=== PATIENT | male | born 1965 | race Caucasian/White ===

== ENCOUNTER 2020-05-12 15:08 | Outpatient (CLI) | payer MEDICARE, SELFPAY | END 2020-05-12 15:09 | disposition home or self-care (01) | LOC: CHSLAB 15:16 | PROVIDERS: PCP Family Medicine; Visit Provider Specialist | DX: L01.00 Impetigo, unspecified (principal) | CPT/HCPCS: 87070; 87077; 87186; 87205 ==

== ENCOUNTER 2020-05-29 10:19 | Outpatient (CLI) | payer MEDICARE, SELFPAY ==
--- NOTE | ~2020-05-29 | US_ITS ---
EXAMINATION: US scrotum doppler EXAM DATE: 05/29/2020 10:52 INDICATION: Left-sided scrotal pain for 2 months. TECHNIQUE: Multiple grayscale and Doppler images of the testicles and scrotum were obtained bilateral ly. There is no prior study for comparison. FINDINGS: Right testicle measures 4.9 x 2.3 x 3.0 cm and is morphologically normal. Low resistance Doppler krysta w confirmed. The epididymis is unremarkable. There is a small hydrocele and a small varicocele. Left testicle measures 4.7 x 2.3 x 3.1 cm and is morphologically normal. Low resistance Doppler flow confirmed. The epididymis is unremarkable. Small hydrocele and varicocele. IMPRESSION: 1. Small bilateral hydroceles and varicoceles. Reviewed, dictated and finalized at location A. OGRAPH RETOUCHER
== END 2020-05-29 10:20 | disposition home or self-care (01) ==
LOC: CHSIMG 10:21
PROVIDERS: PCP Family Medicine; Visit Provider Family Medicine
DX: N50.82 Scrotal pain (principal)
CPT/HCPCS: 76870; 93976

== ENCOUNTER 2020-06-01 11:03 | Outpatient (CLI) | payer MEDICARE, SELFPAY ==
--- NOTE | ~2020-06-01 | XR_ITS ---
EXAMINATION:XR cervical spine 4-5V DATE: 06/01/2020 11:32 INDICATION: Right shoulder pain TECHNIQUE: AP, lateral, bilateral oblique and odontoid views of the cervical spine are provided. COMPARISON: None FINDINGS: Alignment is normal. The odontoid is intact. No fracture is identified. The vertebral body heights are normal. There is mild loss of intervertebral disc space height at C3-4 and C5-6. Small de generative osteophytes project from the anterior endplates of multiple vertebral bodies. Mild to mode rate facet and uncovertebral joint osteoarthritis is noted in the lower cervical spine. Prevertebral soft tissues are normal. IMPRESSION: 1. Mild cervical spondylosis without acute findings. Reviewed, dictated and finalized at location A. [place] COUNSEL
--- NOTE | ~2020-06-01 | XR_ITS ---
EXAMINATION: XR shoulder RT min 2V DATE: 06/01/2020 11:32 INDICATION: Right shoulder pain. TECHNIQUE: 4 views of right shoulder were obtained. COMPARISON: None. FINDINGS: Bone alignment is normal. No fracture. There is mild osteoarthritis of the acromioclavicula r joint and glenohumeral joint. IMPRESSION: 1. Mild polyarticular osteoarthritis. Reviewed, dictated and finalized at location A. UCTION CONSULTANT
== END 2020-06-01 11:04 | disposition home or self-care (01) ==
LOC: CHSIMG 11:05
PROVIDERS: PCP Family Medicine; Visit Provider Family Medicine
DX: M54.2 Cervicalgia (principal)
CPT/HCPCS: 72050; 73030

== ENCOUNTER 2020-06-08 08:37 | Outpatient (RCR) | payer MEDICARE, SELFPAY ==
--- NOTE | 2020-06-08 10:14 | PTOPEVAL ---
Thank you for referring Tee Monge to [facility].? The patient is scheduled to be seen for therapy? ____x/week for ___ weeks. Please review, sign, date and return this plan of care МАРИЯ. I agree with and certify that the following plan of care is medically necessary. Referring Physician Date Admitting Provider: Attending Provider: Bobby Torres MD Referring Provider: *PT Outpatient Evaluation Start: 06/08/20 09:01 Freq: Status: Active Protocol: Document 06/08/20 09:00 Milagros (Rec: 06/08/20 10:11 JAX [id number]) Therapy Assessment Status Assessment Status Assessment Status Evaluation Evaluation Information Problem Diagnosis neck pain, R shoulder pain Onset 06/01/20 Additional Evaluation Detail ndi = 40% quick dash = 36% Subjective Information patient reports he has been Query Text:As Reported By Patient/ having pain in the neck and R Family shoulder for several months. he reports his pain seems to be getting worse. he reports no injury. he reports he has pain in the R side of the neck down to the shoulder blade and down the side of the shoulder. he reports he has been using a massage gun to help with pain relief. he reports he has increased pain with lifting and holding objects out to his side. he reports he has burning in neck area. Prior Level of Function Comments Additional Prior Level of Function prior to 6 months ago, patient Comments reports he has had issues with his back. however, he reports the neck and shoudler issues were not present. he reports he is retired. Pain Assessment Timing of Pain Assessment Timing of Pain Assessment Assessment Pain Scale Pain Scale Used Numeric (1 - 10) Self Report Pain Assessment Right Shoulder(s) Reported Pain Level 9 Greatest Pain Intensity 10 Right Neck Reported Pain Level 9 Greatest Pain Intensity 10 Pain Score Pain Score 9,9: Self Report Additional Pain Score Comments patient is on pain meds and has been on them for years. Interventions Used Interventions Used By Clinicians Activity or ADL's,Education, Electric
--- NOTE | 2020-08-04 11:11 | PCPTNOTE ---
08/04/20 - patient has not been to therapy in nearly 2 months. as of this date, patient will be DC'd from skilled PT services and all progress towards goals will be taken from most recent evaluation/note. FRIDA
== END 2020-06-08 11:25 | disposition home or self-care (01) ==
LOC: CHSPT 08:37
PROVIDERS: PCP Family Medicine; Visit Provider Family Medicine
DX: M54.2 Cervicalgia (principal); M25.511 Pain in right shoulder
CPT/HCPCS: 97014; 97110; 97140; 97161; G0283

== ENCOUNTER 2021-02-09 08:59 | Outpatient (CLI) | payer MEDICARE, SELFPAY ==
--- NOTE | 2021-02-09 11:00 | NEURO_ITS ---
Impression: # Complains of pain and numbness of hands. # Bilateral Carpal Tunnel Syndrome, left more than right. # No ulnar neuropathy. # Normal needle/EMG exam. Nerve Conduction Studies Anti Sensory Summary Table Stim Site NR Peak (ms) P-T Amp (?V) Site1 Site2 Delta-P (ms) Dist (cm) Lalo (m/s) Left Median Anti Sensory (2-3nd Digit) Wrist 4.3 11.4 Wrist 2-3nd Digit 4.3 14.0 33 Wrist 4.5 21.2 Wrist 2-3nd Digit 4.3 14.0 33 Right Median Anti Sensory (2-3nd Digit) Wrist 3.8 21.1 Wrist 2-3nd Digit 3.8 14.0 37 Wrist 3.9 33.5 Wrist 2-3nd Digit 3.8 14.0 37 Left Radial Anti Sensory (Base 1st Digit) Wrist 2.7 20.0 Wrist Base 1st Digit 2.7 0.0 Right Radial Anti Sensory (Base 1st Digit) Wrist 2.5 7.5 Wrist Base 1st Digit 2.5 0.0 Left Ulnar Anti Sensory (5th Digit) Wrist 2.9 18.2 Wrist 5th Digit 2.9 14.0 48 Right Ulnar Anti Sensory (5th Digit) Wrist 2.9 19.8 Wrist 5th Digit 2.9 14.0 48 Motor Summary Table Stim Site NR Onset (ms) O-P Amp (mV) Site1 Site2 Delta-0 (ms) Dist (cm) Lalo (m/s) Left Median Motor (Abd Poll Brev) Wrist 4.9 2.1 Elbow Wrist 5.3 29.0 55 Elbow 10.2 2.5 Right Median Motor (Abd Poll Brev) Wrist 4.1 2.7 Elbow Wrist 5.5 29.0 53 Elbow 9.6 2.0 Left Ulnar Motor (Abd Dig Minimi) Wrist 2.5 5.2 A Elbow Wrist 5.5 30.0 55 A Elbow 8.0 4.9 Right Ulnar Motor (Abd Dig Minimi) Wrist 2.5 5.7 A Elbow Wrist 5.8 32.0 55 A Elbow 8.3 4.3 F Wave Studies NR F-Lat (ms) L-R F-Lat (ms) Left Median (Mrkrs) (Abd Poll Brev) 32.05 0.76 Right Median (Mrkrs) (Abd Poll Brev) 31.29 0.76 Left Ulnar (Mrkrs) (Abd Dig Min) 31.60 0.43 Right Ulnar (Mrkrs) (Abd Dig Min) 31.17 0.43 EMG Side Muscle Nerve Root Ins Act Fibs Amp Dur Recrt Comment Right 1stDorInt Ulnar C8-T1 Nml Nml Nml Nml Nml Right Ext Indicis Radial (Post Int) C7-8 Nml Nml Nml Nml Nml Right Ext Digitorum Radial (Post Int) C7-8 Nml Nml Nml Nml Nml Right BrachioRad Radial C5-6 Nml Nml Nml Nml Nml Right PronatorTeres Median C6-7 Nml Nml Nml Nml Nml Right Abd Poll Brev Median C8-T1 Nml Nml Nml Nml Nml Left 1stDorInt Ulnar C8-T1 Nml Nml Nml Nml Nml Left Ext Indicis Radial (Post Int) C7-8 Nml Nml Nml Nml Nml Left Ext Digitorum Radial (Post Int) C7-8 Nml Nml Nml Nml Nml Left BrachioRad Radial C5-6 Nml Nml Nml Nml Nml Left PronatorTeres Median C6-7 Nml Nml Nml Nml Nml Left Abd Poll Brev Median C8-T1 Nml Nml Nml Nml Nml Right ABD Dig Min Ulnar C8-T1 Nml Nml Nml Nml Nml Left ABD Dig Min Ulnar C8-T1 Nml Nml Nml Nml Nml MTDD
== END 2021-02-09 09:00 | disposition home or self-care (01) ==
LOC: ANHNEURO 09:01
PROVIDERS: PCP Family Medicine; Visit Provider Family Medicine
DX: R20.0 Anesthesia of skin (principal); G56.03 Carpal tunnel syndrome, bilateral upper limbs
CPT/HCPCS: 95886; 95911

== ENCOUNTER 2021-04-06 08:13 | Outpatient (CLI) | payer MEDICARE, SELFPAY ==
--- NOTE | ~2021-04-06 | XR_ITS ---
EXAMINATION: XR hand LT min 3V DATE: 04/06/2021 08:35 INDICATION: Left hand pain and tingling. TECHNIQUE: 3 views of left hand were obtained. COMPARISON: None. FINDINGS: Bone alignment is normal. No fracture. There is mild osteoarthritis of first carpometacarpa l joint and first and second metacarpophalangeal joints. There is moderate osteoarthritis of third me tacarpophalangeal joint. There is mild osteoarthritis of second, third, and fifth distal interphalang eal joints. IMPRESSION: 1. Polyarticular osteoarthritis. Reviewed, dictated and finalized at location A.
--- NOTE | ~2021-04-06 | XR_ITS ---
EXAMINATION: XR hand RT min 3V DATE: 04/06/2021 08:35 INDICATION: Right hand pain and tingling. TECHNIQUE: 3 views of right hand were obtained. COMPARISON: None. FINDINGS: Bone alignment is normal. No fracture. There is moderate osteoarthritis of third metacarpop halangeal joint and mild osteoarthritis of second and fourth metacarpophalangeal joints. There is mil d osteoarthritis of second and third distal interphalangeal joints and third proximal interphalangeal joint and moderate osteoarthritis of fifth distal interphalangeal joint. IMPRESSION: 1. Polyarticular osteoarthritis. Reviewed, dictated and finalized at location A.
== END 2021-04-06 08:14 | disposition home or self-care (01) ==
LOC: CHSIMG 08:16
PROVIDERS: PCP Family Medicine; Visit Provider Orthopaedic Surgery
DX: M79.642 Pain in left hand (principal); M79.641 Pain in right hand; R20.2 Paresthesia of skin
CPT/HCPCS: 73130

== ENCOUNTER → 2021-05-22 07:19 | Outpatient (CLI) | payer MEDICARE, SELFPAY ==
[2021-05-24 14:20] LABS: SARS-CoV-2 RNA PCR Negative
== END ==
PROVIDERS: PCP Family Medicine; Visit Provider Orthopaedic Surgery
DX: Z01.812 Encounter for preprocedural laboratory examination (principal); Z20.822 Contact with and (suspected) exposure to COVID-19
CPT/HCPCS: C9803; U0003; U0005

== ENCOUNTER 2021-05-25 00:04 | Day surgery (SDC) | payer MEDICARE, SELFPAY ==
[2021-05-03 10:47] VITALS: BMI 32.2
--- NOTE | 2021-05-03 11:03 | PC.NURSE ---
Report to the Outpatient Waiting Room, entrance under the green pavilion located off [facility], at time 1130 on date 05/12/21. OR Time: 1330. - You and your visitor will be asked a series of questions to screen for COVID 19 for your protection. - A mask is required within the hospital. - Only one visitor is allowed at this time. Patient visitors will be guided where to wait when not with patient. Preoperative COVID Testing Requirements: No COVID Test needed if: (proof is required; if not received patient will have Rapid Test prior to entry) - Patient has received COVID Vaccine at least 14 days prior to procedure date or - Patient has positive COVID test result within last 90 days of surgery date. COVID Test needed if above criteria is not met If not COVID vaccinated a COVID test must be conducted within 72 hours of surgery and patient is asked to isolate self from time of testing until procedure. You will go to the [employer] [facility] for your COVID testing. The [employer] [facility] site is located at the corner of [address] [facility]. You will only be called if COVID results are positive and your surgeon may reschedule your elective surgery date. Patients may have clear liquids (water, carbonated beverages, clear teas, apple juice) until 3 hours prior to surgery with a maximum of 20 ounces. - No food from midnight until time of surgery - Infants may have breast milk until 4 hours before surgery, infant formula 6 hours prior to surgery. - Children will be allowed to drink immediately following surgery. If applicable, please bring a bottle or sippy cup to assist with drinking. Juice, water, soda, and popsicles are readily available. For infants on formula, please bring formula the day of surgery. Pacifiers are allowed. Take the following medications with a SIP of water the morning of surgery: N/A Medications to discontinue per physician: VITAMINS/SUPPLEMENTS Date to take last dose: 05/08/21 Please no make-up, nail paraguayan, hairspray, perfume, deodorant, or body powder the day of surgery. No jewelry (including any body piercings) or valuables the day of surgery, leave them at home. Please take a shower or bath the night before, or the morning of, surgery with an antibacterial soap. Wear comfortable, loose fitting clothing. Children are encouraged to wear pajamas. - Jewelry must be removed prior to entering the operating room. Rings and piercings that are not removed may be cut off. - The hospital will not accept responsibility for valuables. - Please leave all valuables, including medications, at home the day of surgery. If you are going home after surgery, a licensed garbage truck driver must drive you home. - NO public transportation without another adult. - We recommend that an adult stay with you for 24 hours following discharge. - We also recommend that you do not drive, make important decision, drink alcoholic beverages, or take any drugs that were not prescribed by your health care provider for at least 24 hours after your discharge time. For Pediatric surgeries, we recommend two adults accompany the child home (only one inside the building at this time). Follow any additional instructions given to you from your surgeon. Telephone instructions given to EDUARDO HOLBROOK and asked if any additional questions and then verbalized understanding. Patient advised to call surgeon office or pre surgery nurse liaison [phone] if any additional questions.
--- NOTE | 2021-05-19 14:48 | PC.NURSE ---
PT STATES NO CHANGE IN HEALTH HISTORY, MEDICINES, ALLERGIES, NOR ANY OTHER CHANGES SINCE INTERVIEW. ON 05/03/2021. INSTRUCTIONS GIVEN.
--- NOTE | 2021-05-19 14:54 | PC.NURSE ---
Report to the Outpatient Waiting Room, entrance under the green pavilion located off [facility], at time _0830 on date _05/25/2021 . OR Time: __1030 . - You and your visitor will be asked a series of questions to screen for COVID 19 for your protection. - A mask is required within the hospital. - Only one visitor is allowed at this time. Patient visitors will be guided where to wait when not with patient. Preoperative COVID Testing Requirements: No COVID Test needed if: (proof is required; if not received patient will have Rapid Test prior to entry) COVID TESTING 05/22/2021 @ 0910 - Patient has received COVID Vaccine at least 14 days prior to procedure date or - Patient has positive COVID test result within last 90 days of surgery date. COVID Test needed if above criteria is not met If not COVID vaccinated a COVID test must be conducted within 72 hours of surgery and patient is asked to isolate self from time of testing until procedure. You will go to the [facility] for your COVID testing. The [employer] [facility] is located at the corner of [address] [facility]. You will only be called if COVID results are positive and your surgeon may reschedule your elective surgery date. Patients may have clear liquids (water, carbonated beverages, clear teas, apple juice) until 3 hours prior to surgery with a maximum of 20 ounces. - No food from midnight until time of surgery - Infants may have breast milk until 4 hours before surgery, formula 6 hours prior to surgery. - Children will be allowed to drink immediately following surgery. If applicable, please bring a bottle or sippy cup to assist with drinking. Juice, water, soda, and popsicles are readily available. For infants on formula, please bring formula the day of surgery. Pacifiers are allowed. Take the following medications with a SIP of water the morning of surgery: ___NONE Medications to discontinue per physician ___VITAMINS/SUPPLEMENTS Date to take last dose Please no make-up, nail hungarian, hairspray, perfume, deodorant, or body powder the day of surgery. No jewelry (including any body piercings) or valuables the day of surgery, leave them at home. Please take a shower or bath the night before, or the morning of, surgery with an antibacterial soap. Wear comfortable, loose fitting clothing. Children are encouraged to wear pajamas. - Jewelry must be removed prior to entering the operating room. Rings and piercings that are not removed may be cut off. - The hospital will not accept responsibility for valuables. - Please leave all valuables, including medications, at home the day of surgery. If you are going home after surgery, a licensed substitute bus driver must drive you home. - NO public transportation without another adult. - We recommend that an adult stay with you for 24 hours following discharge. - We also recommend that you do not drive, make important decision, drink alcoholic beverages, or take any drugs that were not prescribed by your health care provider for at least 24 hours after your discharge time. For Pediatric surgeries, we recommend two adults accompany the child home (only one inside the building at this time). Follow any additional instructions given to you from your surgeon. Telephone instructions given to ____patient and asked if any additional questions and then verbalized understanding. Patient advised to call surgeon office or pre surgery nurse liaison [phone] if any additional questions.
--- NOTE | 2021-05-25 07:18 | WPDHPUPDATE1 ---
History and Physical Update Update Date/Time: 05/25/21 07:18 History and Physical has been reviewed, including an updated exam of the patient. There are NO changes in the patient's condition. Risks, benefits, and alternatives have been discussed and questions answered. Patient agrees to proceed with procedure.
--- NOTE | 2021-05-25 12:37 | WPDANESEPPF ---
Anes - Initial Pre Proc Eval Procedure: Operation Date: 05/25/21 14:00 Proposed Procedures p Left Carpal Tunnel Release - Aren Aldridge MD Date/Time: 05/25/21 12:37 Surgeon: Aren Aldridge MD Pre Op Diagnosis: Left Carpal Tunnel Syndrome Patient Data Age: 56 Gender: M Height: 1.78 m Weight: 102 kg Allergies Allergy/AdvReac Type Severity Reaction Status Date / Time No Known Allergies Allergy Verified 05/25/21 12:28 Home Medications Medication Instructions Recorded Confirmed Type montelukast 10 mg tablet 10 mg PO DAILY 04/06/21 05/19/21 History omeprazole 20 mg capsule,delayed 20 mg PO DAILY 04/06/21 05/19/21 History release sumatriptan succinate 100 mg tablet 100 mg PO ONCE PRN 04/06/21 05/19/21 History chlorhexidine gluconate 4 % 1 applic TOPICAL ONCE #237 ml 05/03/21 05/19/21 Rx topical liquid citalopram [Celexa] 20 mg PO HS PRN 05/03/21 05/19/21 History diphenhydramine HCl [Benadryl] 50 mg PO HS 05/03/21 05/19/21 History multivitamin 1 tablet PO DAILY 05/03/21 05/19/21 History Patient hx anesthesia problems: none Family hx anesthesia problems: none Results Review: All pre-operative results and documents have been reviewed as part of the pre-operative evaluation. [facility] Past Medical History Medical History (Updated 05/25/21 @ 12:40 by Deondre Wick MD) Asthma Obesity Surgical History Surgical History (Updated 05/25/21 @ 12:41 by Deondre Wick MD) History of lumbar surgery Family History Family History Grandparent Diabetes mellitus Hypertension Social History Social History Smoking packs per day: 0.5 Smoking cigarettes per day: 10.0 Years smoked: 30 Smoking pack-years: 15.00 Smoking status: Current every day smoker Tobacco type: cigarettes Alcohol intake: former Substance use: never Substance use type: does not use Living arrangements: alone Gender identity (if verbalized by the patient): Male Spiritual care concerns: No Anes - Eval Final PreProcedure Day of Procedure 05/25/21 12:37 Patient weight: obese Heart: regular rate and rhythm Lungs: clear to auscultation Airway: Mallampati scale class II Neurological: alert and oriented Last oral intake: >/= 8 hours ASA classification: III Emergent: no Anesthetic plan: proceed Anesthesia type and monitoring: general LMA and standard monitoring Results Review: All pre-operative results and documents have been reviewed as part of the pre-operative evaluation. Informed Consent: The patient's anesthetic plan and its attendant risks and benefits were discussed with the patient/family/POA. Questions were solicited and answers provided to the satisfaction of the patient/family/POA.
[2021-05-25] MEDS: CELECOXIB 200 MG CAPSULE PO (12:45)
[2021-05-25] MEDS: ACETAMINOPHEN 500 MG TABLET 1000 MG PO (12:45)
[2021-05-25 12:49] VITALS: BP 130/83; PULSE 84; TEMP 36.6; O2SAT 99
[2021-05-25] MEDS: LACTATED RINGERS 1,000 ML 30 ML IV CONT (12:50)
[2021-05-25] MEDS: ceFAZolin 2 GM/D5W 50 ML 2 GM/50 ML BAG IVPB (13:04)
[2021-05-25] MEDS: BUPIVACAINE HCL 0.5% PF 30 ML VIAL INFILTRATE (13:26)
[2021-05-25 13:50] VITALS: BP 125/99; PULSE 86; RESP 16; TEMP 36.1; O2SAT 100
--- NOTE | 2021-05-25 13:52 | W.PM.PROC2 ---
Procedure Note - Detailed Date of Procedure 05/25/21 Pre-op Diagnosis Left Carpal Tunnel Syndrome Post-op Diagnosis same Procedure Performed LEFT CTR Surgeon Aren Aldridge MD Anesthesia general Description of Procedure THE LEFT UPPER EXTREMITY WAS PREPPED AND DRAPED IN THE STERILE FASHION. THE CARPAL TUNNEL WAS MARKED FROM THE FLEXED RING FINGER. THE TORNEQUET WAS INFLATED. THE INCISION WAS MADE AT THE MID PALM DOWN THROUGH THE SUBCUTANEOUS TISSUES. THE PALMAR FASCIA WAS IDENTIFIED. AN INCISION WAS MADE THROUGH THE PALMAR FASCIA UNTIL THE CARPAL TUNNEL WAS ENTERED. A MOSQUITO HEMOSTAT WAS USED TO PROTECT THE MEDIAN NERVE WHILE THE INCISION TO THE PALMAR FASCIA WAS COMPLETE PROXIMALLY AND DISTALLY TO THE CARDINAL LINE. NEXT, THE TRANSVERSE CARPAL LIGAMENT WAS IDENTIFIED. A FREIER ELEVATOR WAS USED TO SEPARATE THE NERVE FROM THE LIGAMENT. A METZENBAUM SCISSORS WAS THEN USED TO INCISE THE TRANSVERSE CARPAL LIGAMENT UNTIL THERE WAS A COMPLETE RELEASE OF THE CARPAL TUNNEL. THE MEDIAN NERVE WAS INTACT. THE TOURNEQUET WAS DEFLATED. THE BLEEDERS WERE CAUTERIZED. THE WOUND WAS WASHED. THE SKIN WAS APPROXIMATED WITH 4-0 NYLON SUTURE. STERILE DRESSING WAS APPLIED. PATIENT WAS EXTUBATED AND SENT TO THE RECOVERY ROOM. Estimated Blood Loss 5 Complications No immediate complications Condition stable Disposition PACU
[2021-05-25 14:05] VITALS: BP 111/71; PULSE 80; RESP 16; O2SAT 95
[2021-05-25 14:14] VITALS: BP 125/65; PULSE 76
[2021-05-25 14:45] VITALS: BP 101/68; PULSE 63
[2021-05-25 15:00] VITALS: BP 107/68; PULSE 66
== END 2021-05-25 15:16 | disposition home or self-care (01) ==
PROVIDERS: PCP Family Medicine; Visit Provider Orthopaedic Surgery
PROC: (CPT 64721; principal; 2021-05-25 14:00)
DX: G56.02 Carpal tunnel syndrome, left upper limb (principal); J45.909 Unspecified asthma, uncomplicated; E66.9 Obesity, unspecified; Z68.32 Body mass index [BMI] 32.0-32.9, adult; F17.210 Nicotine dependence, cigarettes, uncomplicated
CPT/HCPCS: 64721; A9270; C9803; J0690; J2250; J2405; J2704; J3010; J7120; U0003; U0005